=== PATIENT | male | born 1965 | race Two or more races ===

== ENCOUNTER 2018-04-11 11:15 | Emergency (ER) | payer OTHER ==
[2018-04-11 11:32] VITALS: BP 138/81; PULSE 85; TEMP 98.4; BMI 31.9
--- NOTE | 2018-04-11 12:38 | PDOC ---
History of Present Illness - General Chief Complaint: Edema Stated Complaint: LT HIP/ KNEE PAIN - History of Present Illness Initial Comments: 53-year-old male without comorbidities presents for evaluation of left thigh pain. He states a window fell on his left thigh causing a large bruise on 2017. Since that time he is been having localized pain to the area. 04/11/18 12:33 Past History - Past Medical History Allergies/Adverse Reactions: Allergies Allergy/AdvReac Type Severity Reaction Status Date / Time No Known Allergies Allergy Verified 04/11/18 11:23 Home Medications: Ambulatory Orders NK [No Known Home Medication] 04/11/18 COPD: No - Suicide/Smoking/Psychosocial Hx Smoking History: Never smoked Have you smoked in the past 12 months: No If you are a former smoker, when did you quit?: 6 years ago Information on smoking cessation initiated: No Review of Systems - Review of Systems Musculoskeletal: Yes: See HPI All Other Systems: Reviewed and Negative *Physical Exam - Vital Signs Last Vital Signs Temp Pulse Resp BP Pulse Ox 98.4 F 85 18 138/81 98 04/11/18 11:23 04/11/18 11:23 04/11/18 11:23 04/11/18 11:23 04/11/18 11:23 - Physical Exam Comments: Left thigh skin color and temperature are normal. There are no breaks in the skin. There is a large tender fluctuant area with normal overlying skin color and temperature without sensitivity or induration on the lateral aspect of the left thigh. NVID. The remiander of the leg is soft and non tender without sensory or motor deficits. 04/11/18 12:34 04/11/18 12:35 Medical Decision Making - Medical Decision Making 500 mL of serosanguineous fluid was aspirated from the left thigh hematoma. This was tolerated well a dry sterile dressing was placed and a compression wrap was placed over that. This was done aseptically. 04/11/18 12:35 *DC/Admit/Observation/Transfer Diagnosis at time of Disposition: Hematoma - Discharge Dispostion Disposition: HOME Condition at time of disposition: Stable Decision to Admit order: No - Referrals Referrals: Charles Ortega MD [Staff Physician] - - Patient Instructions Printed Discharge Instructions: DI for Hematoma (Bruise) Additional Instructions: Return to the emergency room should her symptoms worsen or go unresolved. Please follow up with orthopedic surgery for further evaluation and treatment options. Do not sleep with a compression wrap around her leg. Remove it before bedtime tonight. - Post Discharge Activity
== END 2018-04-11 12:56 | disposition home or self-care (01) ==
LOC: JERFT 11:15
PROC: 0H9JXZZ Drainage of Left Upper Leg Skin, External Approach (ICD-10-PCS; principal; 2018-04-11)
DX: S70.12XA Contusion of left thigh, initial encounter (principal); W20.8XXA Other cause of strike by thrown, projected or falling object, initial encounter; Y93.89 Activity, other specified; Y92.89 Other specified places as the place of occurrence of the external cause; Z87.891 Personal history of nicotine dependence
CPT/HCPCS: 99281-25

== ENCOUNTER 2018-07-20 05:23 | Day surgery (SDC) | payer OTHER ==
[2018-07-18 10:04] VITALS: BMI 36.6
[2018-07-20] MEDS ORDERED: MIDAZOLAM HCL 2 MG/2 ML SINGLE DOSE VIAL ONE (11:58)
[2018-07-20] MEDS ORDERED: LIDOCAINE HCL/PF 2% SDV 5ML VIAL ONE (12:04)
[2018-07-20] MEDS ORDERED: KETOROLAC TROMETHAMINE 30 MG/1 ML VIAL ONE (12:04)
[2018-07-20] MEDS ORDERED: ONDANSETRON 4 MG/2 ML VIAL ONE (12:04)
[2018-07-20] MEDS ORDERED: DEXAMETHASONE SOD PHOSPHATE 4 MG/1 ML VIAL ONE (12:04)
[2018-07-20] MEDS ORDERED: SUCCINYLCHOLINE CHLORIDE 200 MG/10 ML VIAL ONE (12:05)
--- NOTE | 2018-07-20 12:09 | HP ---
[facility]ellite [facility] - Chief Complaint Chief Complaint: left thigh hematoma History Source: Patient - Past Medical History Allergies/Adverse Reactions: Allergies Allergy/AdvReac Type Severity Reaction Status Date / Time No Known Allergies Allergy Verified 07/20/18 11:12 - Current Medications Current Medications: Home Medications Medication Instructions Recorded Calcium Carbonate [Calcium] 500 mg PO DAILY 07/18/18 Multivitamin [Poly-Vitamin] 1 each PO DAILY 07/18/18 Satellite Physical Exam - Physical Examination Vital Signs: Vital Signs Period Temp Pulse Resp BP Sys/Rodriguez Pulse Ox Last 24 Hr 97.6 F 57 18 136/76 99 Extremities: Other (+ swelling leftt thigh) [facility]ellite Impression/Plan - Impression/Plan Impression: left thigh hematoma Operative Procedure: open exploration and debridement left thigh Date to be Performed: 07/20/18
[2018-07-20] MEDS ORDERED: LIDOCAINE HCL 1%, 10 MG/ML (20ML VIAL) ONE (12:13)
[2018-07-20] MEDS ORDERED: ceFAZolin SODIUM 1 GM VIAL IVPB ONE (12:20)
[2018-07-20] MEDS ORDERED: ceFAZolin SODIUM 1 GM VIAL ONE (12:22)
[2018-07-20] MEDS ORDERED: PROPOFOL 20 ML ONE (12:25)
[2018-07-20] MEDS ORDERED: LIDOCAINE HCL 1%, 10 MG/ML (50 mL VIAL) IJ ONE (12:28)
--- NOTE | 2018-07-20 12:48 | OP ---
Operative Note - Note: Operative Date: 07/20/18 Pre-Operative Diagnosis: left thigh hematoma Operation: open left thigh exploration and evacuation of hematoma Post-Operative Diagnosis: Same as Pre-op Surgeon: Todd Hernandez Anesthesia: General Operative Report Dictated: Yes
[2018-07-20] MEDS ORDERED: ONDANSETRON 4 MG/2 ML VIAL IVPUSH PRN (12:59)
[2018-07-20] MEDS ORDERED: ACETAMINOPHEN 1000 MG/100 ML VIAL (NON FORMULARY) IVPB ONE (12:59)
[2018-07-20] MEDS ORDERED: LACTATED RINGERS SOLUTION 1,000 ML IV SCH (13:00)
--- NOTE | 2018-07-20 13:48 | OP ---
DATE OF OPERATION: 07/20/2018 PREOPERATIVE DIAGNOSIS: A large subfascial hematoma, left thigh. POSTOPERATIVE DIAGNOSIS: A large subfascial hematoma, left thigh. PROCEDURE: Open exploration, left thigh. SURGICAL ATTENDING: Todd Hernandez MD ANESTHESIA: General with LMA. CLOSURE: Nylon 4-0. COMPLICATIONS: None. CONDITION: To recovery room in stable condition. DESCRIPTION OF OPERATIVE PROCEDURE: Patient was taken to the operating room on July 20, 2018. General anesthesia with LMA was administered by the anesthesiologist. IV Kefzol was given prophylactically prior to the case. The left lateral thigh area was prepped and draped in the usual sterile fashion with the patient supine and a bump under his buttock, elevating the left pelvis. Left thigh area was prepped and draped in the usual sterile fashion. Then, a cm longitudinal incision over the lateral aspect of the thigh at the level of the mass was palpated. Sharp dissection was carried down to the level of the fascia. The fascia was opened and then immediate expression of 150 to 200 mL of clear fluid came out of the subfascial region. This area was irrigated and cleansed of all fluid. The area was palpated to extend down towards the thigh, up anteriorly, and proximally it did not go too far, and somewhat posteriorly. The fascia in this area was curetted in order to remove any fibrinous coverage to allow the fascia to mat down again. The fascia was then closed using 0 Vicryl suture, 2-0 for subcutaneous, and 3-0 Monocryl subcuticular with skin glue with Steri-Strips. Sterile dressing was applied, and a wrap was placed to help compress the area together, so it would not re-accumulate. Patient was awakened from anesthesia and transferred to the recovery room in stable condition. No complications. Estimated blood loss negligible. Rodrigo [id number]
[2018-07-20 14:37] VITALS: BP 126/76; PULSE 56
[2018-07-20 16:58] VITALS: TEMP 98
== END 2018-07-20 15:41 | disposition home or self-care (01) ==
LOC: JASU-SURG 05:23
PROVIDERS: ATTEND Orthopaedic Surgery
PROC: 0JCM0ZZ Extirpation of Matter from Left Upper Leg Subcutaneous Tissue and Fascia, Open Approach (ICD-10-PCS; 2018-07-20)
PROC: 0JBM0ZZ Excision of Left Upper Leg Subcutaneous Tissue and Fascia, Open Approach (ICD-10-PCS; principal; 2018-07-20 12:00)
DX: S70.12XA Contusion of left thigh, initial encounter (principal); X58.XXXA Exposure to other specified factors, initial encounter; Y93.9 Activity, unspecified; Y92.9 Unspecified place or not applicable; Y99.9 Unspecified external cause status
CPT/HCPCS: 94760; J0131